=== PATIENT | female | born 1985 | race American Indian/Alaskan Native ===

== ENCOUNTER 2021-08-09 20:32 | Emergency (ER) | payer MEDICAID ==
[2021-08-09 21:59] LABS: Basophils % (Auto) 0.6 % (0.0-1.8); Eosinophils # (Auto) 0.2 K/mm3 (0.0-0.4); Eosinophils % (Auto) 3.2 % (0.0-4.3); Hemoglobin 12.7 gm/dl (10.1-14.3); Lymphocytes # (Auto) 2.7 K/mm3 (1.2-5.4); Lymphocytes % (Auto) 41.5 % (13.4-35.0); Mean Corpuscular HGB Conc 33 % (30-34); Mean Corpuscular Volume 80 fl (79-97); Monocytes # (Auto) 0.5 K/mm3 (0.0-0.8); Monocytes % (Auto) 8.3 % (0.0-7.3); Platelet Count 209 K/mm3 (140-440); Red Blood Count 4.87 M/mm3 (3.65-5.03); Red Cell Distribution Width 15.9 % (13.2-15.2)
[2021-08-09 22:00] LABS: Amorphous Crystals,Urine Few; Bacteria,Urine 1+ /HPF (Negative); Bilirubin,Urine NEG (Negative); Blood,Urine NEG (Negative); Color,Urine Yellow (Yellow); Mucus,Urine FEW /HPF; Protein,Urine <15 mg/dL mg/dL (Negative); Urobilinogen,Urine < 2.0 mg/dL (<2.0)
[2021-08-09] MEDS ORDERED: MORPHINE 4 MG/1 ML INJ IV ONE (22:13)
[2021-08-09] MEDS ORDERED: ONDANSETRON 4 MG/2 ML INJ IV ONE (22:13)
[2021-08-09 22:15] LABS: Blood Urea Nitrogen 15 mg/dL (7-17); Hemolysis Index 11
[2021-08-09 22:19] LABS: Alanine Aminotransferase 18 units/L (7-56); Albumin 4.4 g/dL (3.9-5)
[2021-08-09 22:21] LABS: BUN/Creatinine Ratio 25; Bilirubin,Direct < 0.2 mg/dL (0-0.2)
--- NOTE | 2021-08-09 22:34 | Emergency Department Report ---
ED Abdominal Pain HPI - General Chief Complaint: Abdominal Pain Stated Complaint: LOWER ABD PAIN Time Seen by Provider: 08/09/21 21:59 Source: patient Mode of arrival: Ambulatory Limitations: No Limitations - History of Present Illness Initial Comments: Chief complaint abdominal pain HPI: This is a 36-year-old female without significant past medical history presents with periumbilical pain which began this morning. Pain is intermittently sharp and dull. 8 out of 10 in severity. Worse with movement. Did have decreased appetite today. Normal bowel movement yesterday and today. Denies nausea or fever. No history of abdominal surgeries. She does not use contraception. 6 to 7 months ago she underwent GI evaluation for right upper quadrant epigastric abdominal pain. She was evaluated by sales service professional. She had a CT scan performed at that time. No specific diagnosis provided. Abdominal pain resolved with fiber therapy. MD Complaint: abdominal pain -: Gradual, This morning Location: periumbilical Radiation: RLQ Severity: severe Severity scale (0 -10): 8 Quality: sharp, dull Consistency: constant Improves With: other (Been still) Worsens With: movement Associated Symptoms: anorexia - Related Data Previous Rx's Medication Instructions Recorded Last Taken Type Docusate Sodium [Colace] 100 mg PO BID 14 Days #28 capsule 08/10/21 Unknown Rx oxyCODONE /ACETAMINOPHEN [Percocet 1 tab PO Q6HR PRN #15 tablet 08/10/21 Unknown Rx 5/325] Allergies Allergy/AdvReac Type Severity Reaction Status Date / Time No Known Allergies Allergy Verified 03/25/15 13:55 ED Review of Systems ROS: Stated complaint: LOWER ABD PAIN Other details as noted in HPI Comment: All other systems reviewed and negative Constitutional: denies: chills, fever, malaise Respiratory: denies: cough, shortness of breath Gastrointestinal: abdominal pain. denies: nausea, vomiting, diarrhea, constipation ED Past Medical Hx - Past Medical History Previous Medical History?: No - Surgical History Past Surgical History?: No - Social History Smoking Status: Never Smoker Substance Use Type: None - Medications Home Medications: Home Medications Medication Instructions Recorded Confirmed Last Taken Type Docusate Sodium [Colace] 100 mg PO BID 14 Days #28 capsule 08/10/21 Unknown Rx oxyCODONE /ACETAMINOPHEN [Percocet 1 tab PO Q6HR PRN #15 tablet 08/10/21 Unknown Rx 5/325] ED Physical Exam - General Limitations: No Limitations General appearance: alert, in no apparent distress, other (Appears extremely uncomfortable with position change and ambulation) - Head Head exam: Present: atraumatic, normocephalic - Eye Eye exam: Present: normal appearance - ENT ENT exam: Present: mucous membranes moist - Neck Neck exam: Present: normal inspection, full ROM - Respiratory Respiratory exam: Present: normal lung sounds bilaterally. Absent: respiratory distress, wheezes, rales, rhonchi - Cardiovascular Cardiovascular Exam: Present: regular rate, normal rhythm, normal heart sounds. Absent: systolic murmur, diastolic murmur, rubs, gallop - GI/Abdominal GI/Abdominal exam: Present: soft, distended (Mild distention), tenderness, guarding, normal bowel sounds, other (Right lower quadrant tenderness with voluntary guarding). Absent: rebound, rigid - Extremities Exam Extremities exam: Present: normal inspection - Neurological Exam Neurological exam: Present: alert, oriented X3 - Psychiatric Psychiatric exam: Present: normal affect, normal mood - Skin Skin exam: Present: warm, dry, intact, normal color. Absent: rash ED Course Vital Signs 08/09/21 21:18 Temperature 98.4 F Pulse Rate 71 Respiratory 16 Rate Blood Pressure 130/75 [Left] O2 Sat by Pulse 100 Oximetry ED Medical Decision Making - Lab Data Result diagrams: 08/09/21 21:45 08/09/21 21:45 - Radiology Data Radiology results: report reviewed Patient Name: BIANCA WHEAT Gender: Female Date of : 1985 Referring Provider: ARTEMIO TYSON Organization: [facility] Accession Number: [id number] Requested Date: August 09, 2021 23:26 Report Status: Final Requested Procedure: 1 Procedure Description: CT abdomen pelvis w con Modality: CT Findings Reporting MD: Ford Pritchard Dictation Time: August 09, 2021 22:41 Tunnel Kiln Operator: Not available [place] Date: CT ABDOMEN AND PELVIS WITH CONTRAST HISTORY: Periumbilical pain rating to the RIGHT. COMPARISON: None. TECHNIQUE: CT images of the abdomen and pelvis were obtained following administration of intravenous contrast. All CT scans at this location are performed using CT dose reduction for ALARA by means of automated exposure control. CONTRAST: 100 ml of intravenous contrast administered. FINDINGS: Lungs/bones: Lung bases are clear Abdomen/pelvis: The liver, spleen, adrenal glands, pancreas, gallbladder appear normal. There is nonspecific bowel loops without evidence for obstructive change. Constipation is noted. Uterus is slightly prominent, nonspecific. No significant free fluid is seen. There is a umbilical hernia containing fat with mild diastasis of the rectus abdominous muscles. Appendix appears normal and best seen on coronal images degenerative change and sacroiliac joints IMPRESSION: 1. Mild periumbilical hernia containing fat with mild diastasis of the rectus abdominal muscles. No bowel involvement. 2. Constipation. No evidence for bowel obstruction. Signer Name: Ford Pritchard MD Signed: 08/09/2021 10:41 PM Workstation Name: [email or web address] - Medical Decision Making Clinical impression umbilical hernia, without obstruction or incarceration. Unable to palpate hernia on exam. Pain improved with IV morphine. Patient received p.o. Percocet, Zofran ODT. Patient is discharged home with referral to general surgeon. Prescribed Percocet Colace Patient also given ice pack before discharge. Critical care attestation.: If time is entered above; I have spent that time in minutes in the direct care of this critically ill patient, excluding procedure time. ED Disposition Clinical Impression: Umbilical hernia, Acute abdominal pain Disposition: 01 HOME / SELF CARE / HOMELESS Is pt being admited?: No Does the pt Need Aspirin: No Condition: Stable Instructions: Abdominal Pain (ED), Umbilical Hernia, Adult Prescriptions: Docusate Sodium [Colace] 100 mg PO BID 14 Days #28 capsule oxyCODONE /ACETAMINOPHEN [Percocet 5/325] 1 tab PO Q6HR PRN #15 tablet PRN Reason: Pain Referrals: LIAM HUERTA MD [Staff Physician] - 3-5 Days
--- NOTE | 2021-08-09 23:46 | Cat Scan Report ---
CT ABDOMEN AND PELVIS WITH CONTRAST HISTORY: Periumbilical pain rating to the RIGHT. COMPARISON: None. TECHNIQUE: CT images of the abdomen and pelvis were obtained following administration of intravenous contrast. All CT scans at this location are performed using CT dose reduction for ALARA by means of automated exposure control. CONTRAST: 100 ml of intravenous contrast administered. FINDINGS: Lungs/bones: Lung bases are clear Abdomen/pelvis: The liver, spleen, adrenal glands, pancreas, gallbladder appear normal. There is non specific bowel loops without evidence for obstructive change. Constipation is noted. Uterus is slight ly prominent, nonspecific. No significant free fluid is seen. There is a umbilical hernia containing fat with mild diastasis of the rectus abdominous muscles. Appendix appears normal and best seen on co azeem images degenerative change and sacroiliac joints IMPRESSION: 1. Mild periumbilical hernia containing fat with mild diastasis of the rectus abdominal muscles. No b owel involvement. 2. Constipation. No evidence for bowel obstruction. Signer Name: Ford Pritchard MD Signed: 08/09/2021 11:41 PM Workstation Name: [email or web address]
[2021-08-10] MEDS ORDERED: oxyCODONE /ACETAMINOPHEN 5-325MG TAB PO ONE (00:07)
[2021-08-10] MEDS ORDERED: ONDANSETRON 4 MG ODT TAB PO ONE (00:07)
[2021-08-10 01:37] VITALS: BP 129/71
== END 2021-08-10 01:28 | disposition home or self-care (01) ==
LOC: ED 20:32
DX: K42.9 Umbilical hernia without obstruction or gangrene (principal)
CPT/HCPCS: 36415; 74177; 80048; 80076; 81001; 83690; 84703; 85025; 96374; 96375; 99284; J2270; J2405; Q9967; Q0162

== ENCOUNTER 2021-09-02 09:43 | Day surgery (SDC) | payer MEDICAID ==
[2021-09-02] MEDS ORDERED: ceFAZolin/STERILE WATER 2 GM/20 ML SYRINGE IV NR (10:00)
[2021-09-02] MEDS ORDERED: LACTATED RINGERS 1,000 ML ONE ×2 (10:38→13:03)
[2021-09-02] MEDS ORDERED: LIDOCAINE (1%) 10 MG/1 ML VIAL 20 ML MDV ONE (10:53)
[2021-09-02] MEDS ORDERED: BUPIVACAINE/PF (0.5%) 5 MG/1 ML 30 ML VIAL INFILTRATI ONE ×2 (10:53→12:24)
[2021-09-02] MEDS ORDERED: HYDROmorphone 1 MG/1 ML INJ IV PRN ×2 (11:03)
[2021-09-02] MEDS ORDERED: ONDANSETRON 4 MG/2 ML INJ IV PRN (11:03)
[2021-09-02] MEDS ORDERED: ACETAMINOPHEN 500 MG TAB PO ONE (11:03)
[2021-09-02] MEDS ORDERED: MAGNESIUM OXIDE 400 MG TAB PO ONE (11:03)
--- NOTE | 2021-09-02 11:04 | Anesthesia Day of Surgery ---
Anesthesia Day of Surgery - Day of Surgery Patient Examined: Yes Patient H&P Reviewed: Yes Patient is NPO: Yes
--- NOTE | 2021-09-02 11:05 | Anesthesia Consultation ---
Anesthesia Consult and Med Hx Date of service: 09/02/21 - Airway Anesthetic Teeth Evaluation: Good ROM Head & Neck: Adequate (Denies RA neck instability/issues) Mental/Hyoid Distance: Adequate Mallampati Class: Class I Intubation Access Assessment: Good - Pre-Operative Health Status ASA Pre-Surgery Classification: ASA2 Proposed Anesthetic Plan: General - Pulmonary Hx Smoking: No Hx Sleep Apnea: No (MARTITA PRE SCREEN LOW RISK) - Cardiovascular System Hx Hypertension: No - Central Nervous System Hx Neuromuscular Disorder: Yes (Rheum Arthritis) Hx Back Pain: Yes Hx Psychiatric Problems: No - Gastrointestinal Hx Gastroesophageal Reflux Disease: No - Hematic Hx Anemia: Yes (NOT RECENT) Hx Sickle Cell Disease: No - Other Systems Hx Cancer: No Hx Obesity: Yes
[2021-09-02] MEDS ORDERED: LACTATED RINGERS 1,000 ML IV SCH (11:15)
[2021-09-02] MEDS ORDERED: HYDROmorphone 1 MG/1 ML INJ ONE (11:42)
[2021-09-02] MEDS ORDERED: propofoL 200 MG/20 ML VIAL IV ONE (11:43)
[2021-09-02] MEDS ORDERED: ROCURONIUM 50 MG/5 ML INJ IV ONE ×2 (11:43→13:03)
[2021-09-02] MEDS ORDERED: LIDOCAINE MPF (2%) 20 MG/1 ML VIAL 5 ML ONE (11:43)
[2021-09-02] MEDS ORDERED: CELECOXIB 200 MG CAP PO NR (12:00)
[2021-09-02] MEDS ORDERED: LIDOCAINE (1%) 10 MG/1 ML VIAL 20 ML MDV INFILTRATI ONE (12:24)
[2021-09-02] MEDS ORDERED: KETOROLAC 30 MG/1 ML INJ ONE (13:03)
[2021-09-02] MEDS ORDERED: NEOSTIGMINE 10MG/10 ML INJ MDV ONE (13:03)
[2021-09-02] MEDS ORDERED: GLYCOPYRROLATE 0.4 MG/2 ML INJ ONE (13:03)
[2021-09-02] MEDS ORDERED: ONDANSETRON 4 MG/2 ML INJ ONE (13:03)
--- NOTE | 2021-09-02 13:24 | Short Stay Summary ---
Short Stay Documentation Date of service: 09/02/21 - History Principal diagnosis: umbilical hernia H&P: obtained from office - Allergies and Medications Current Medications: Allergies No Known Allergies Allergy (Verified 03/25/15 13:55) Home Medications Medication Instructions Recorded Confirmed Last Taken Type Methylcellulose [Fiber] 500 mg PO DAILY 08/22/21 08/22/21 Unknown History Multivitamin/Iron/Folic Acid 1 each PO DAILY 08/22/21 08/22/21 Unknown History [Centrum Adults Tablet] Active Medications Celecoxib (Celecoxib 200 Mg Cap) 400 mg PO PREOP NR Stop: 09/02/21 23:59 Last Admin: 09/02/21 11:15 Dose: 400 mg Documented by: Hydromorphone HCl (Hydromorphone 1 Mg/1 Ml Inj) 0.25 mg IV Q10MIN PRN PRN Reason: Pain, Moderate (4-6) Hydromorphone HCl (Hydromorphone 1 Mg/1 Ml Inj) 0.5 mg IV Q10MIN PRN PRN Reason: Pain , Severe (7-10) Lactated Ringer's (Lactated Ringers) 1,000 mls @ 125 mls/hr IV DIRECT YURI Last Admin: 09/02/21 10:30 Dose: 125 mls/hr Documented by: Ondansetron HCl (Ondansetron 4 Mg/2 Ml Inj) 4 mg IV ONCE PRN PRN Reason: Nausea And Vomiting - Brief post op/procedure progress note Date of procedure: 09/02/21 Pre-op diagnosis: umbilical hernia Post-op diagnosis: same Procedure: open umbilical hernia repair with mesh Anesthesia: GETA, local Findings: 2cm fat containing umbilical hernia repaired with 8 cm bard ventralex mesh Surgeon: DIMITRIS STOCK Cardiac Cath Lab Manager: LIAM HUERTA Estimated blood loss: minimal Pathology: list (hernia sac) Specimen disposition: to lab Condition: stable - Hospital course Hospital course: Pt observed in PACU and discharged to home in stable condition - Disposition Condition at discharge: Good Disposition: 01 HOME / SELF CARE / HOMELESS Short Stay Discharge Plan Additional Instructions: SEE PRINTED DISCHARGE INSTRUCTIONS Follow up with: DEION ODONNELL MD [Primary Care Provider] - 7 Days DIMITRIS STOCK DO [Staff Physician] - 14 Days Prescriptions: Gabapentin 300 mg PO BID #6 cap Ibuprofen [Motrin 800 MG tab] 800 mg PO Q8HR PRN #30 tablet PRN Reason: Pain, Moderate (4-6) HYDROcodone/APAP 5-325 [[place] 5/325] 1 each PO Q6HR PRN #20 tablet PRN Reason: Pain , Severe (7-10)
--- NOTE | 2021-09-02 14:34 | Operative Report ---
Operative Report Operative Report: Date of procedure: 09/02/21 Pre-op diagnosis: umbilical hernia Post-op diagnosis: same Procedure: open umbilical hernia repair with mesh Anesthesia: BLAIR local Findings: 2cm fat containing umbilical hernia repaired with 8 cm bard ventralex mesh Surgeon: DIMITRIS STOCK Mock Up Builder: LIAM HUERTA Estimated blood loss: minimal Pathology: list (hernia sac) Specimen disposition: to lab Condition: stable Hospital course: Pt observed in PACU and discharged to home in stable condition HPI indication: Patient is a 36-year-old female who presented to the surgery clinic with an umbilical hernia. The patient was having more discomfort in the area and elected to have this fixed. All risk, benefits, alternatives to surgery discussed with patient questions answered. Consent was obtained. Procedure in detail: Patient was identified in the preoperative area, taken back to the operating room and placed on the operating room table in supine position. After anesthesia was induced the abdomen was prepped and draped in usual sterile fashion timeout performed. Local anesthetic was infiltrated into the skin at the intended incision site. An semilunar incision was made at the inferior aspect of the umbilicus using a 15 blade, incorporating laparoscopic scar. Dissection was carried down through skin and subcutaneous tissue using Bovie electrocautery until the hernia was encountered. The umbilicus was dissected from the hernia sac. The hernia sac was opened and contained fat. The hernia sac was chronically inflamed/scarred. It was circumferentially dissected free from the surrounding tissue using a hemostat and electrocautery. The fascia was identified and freed of overlying tissue circumferentially. The fascial defect measured approximately 2 cm. A [address] mesh was inserted into the abdomen and was ensured to be expanded completely and was laying flat against the peritoneum. This was sutured in place using 2-0 Prolene suture circumferentially in the usual fashion. The tabs were cut flush with the fascia. The fascia was approximated over the mesh using interrupted 0 Vicryl stitches. The subcutaneous tissue was irrigated and hemostasis was carefully ensured. The umbilicus was tacked down to the fascia using a 3-0 Vicryl interrupted stitch. The deep dermal layer was closed using 3-0 Vicryl interrupted sutures. The skin was approximated using 4-0 Monocryl subcuticular running stitch and skin glue. After the glue was dry a 4 x 4 fluff gauze was placed in the umbilicus and secured with a Tegaderm. At the end of the case, all sponge, instrument, sharp counts were correct x2. The patient was awoken from anesthesia extubated and taken to PACU in stable condition.
[2021-09-02] MEDS ORDERED: HYDROcodone/ACETAMINOPHEN 5-325 MG TAB PO ONE (14:41)
[2021-09-02 14:52] VITALS: BP 112/59
--- NOTE | 2021-09-02 15:52 | Post Anesthesia Evaluation ---
- Post Anesthesia Evaluation Patient Participated: Yes Airway Patent: Yes Stable Respiratory Function: Yes Nausea/Vomiting: No Temp > 96.8F: Yes Pain Manageable: Yes Adequeate Hydration: Yes Anesthesia Complications: No Block Receding Appropriately: Not Applicable Patient on Ventilator: No
== END 2021-09-02 15:08 | disposition home or self-care (01) ==
LOC: OR 09:43
PROVIDERS: ATTEND Surgery
DX: K42.9 Umbilical hernia without obstruction or gangrene (principal); M06.9 Rheumatoid arthritis, unspecified; E66.9 Obesity, unspecified; D64.9 Anemia, unspecified; Z98.51 Tubal ligation status; Z98.890 Other specified postprocedural states; Z79.899 Other long term (current) drug therapy; Z20.822 Contact with and (suspected) exposure to COVID-19
CPT/HCPCS: 49585; 81025; 88302; C1781; J0690; J1170; J1815; J1885; J2405; J2704; J2710; J3490; J7120; U0003